=== PATIENT | female | born 1990 | race Caucasian/White ===

== ENCOUNTER → 2021-05-18 | Outpatient (CLI) | payer OTHER ==
[~2021-05-18] MED LIST: BIRTH CONTROL; CIPRO250 M1 PO; CIPRO500 MG PO; CLEOCIN HCL300 MG PO; FLEXERIL PO; HYDROCODON-ACE1 EAC8 PO; MICROGESTIN1 EAC1 PO; MICROGESTIN1 EACH PO; MULTI-VITAMIN1 EAC5 PO; MULTIVITAMINS1 EAC7 PO; NORCO 5-325 TA1 EACH PO; PERCOCET 5-3251 EACH PO; PHENERGAN 25 MG25 M1 PO; PRILOSEC 20 MG20 MG PO; TAMSULOSIN HCL0.4 MG PO; TRAMADOL 50 MG50 MG PO; ZOFRAN ODT4 MG PO; ZOFRAN ODT4 MG SUBLING
== END ==
LOC: M.NUC 05-09 16:14
PROVIDERS: ATTEND Family Medicine
DX: R93.6 Abnormal findings on diagnostic imaging of limbs (principal)